=== PATIENT | female | born 1995 | race Caucasian/White ===

== ENCOUNTER 2017-07-28 17:35 | Emergency (ER) | payer OTHER ==
[2017-07-28] MEDS ORDERED: NS 1,000 ML IV ONE (17:47)
[2017-07-28] MEDS ORDERED: LORazepam 2 MG/ML INJ IVP ONE (17:47)
[2017-07-28 17:48] VITALS: RESP 18; TEMP 98.4
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
[2017-07-28 18:25] LABS: PLATELET COUNT 243 10^3/uL (150-400)
[2017-07-28] MEDS ORDERED: lamoTRIgine 100 MG TAB PO ONE (18:58)
[2017-07-28 19:38] VITALS: BP 117/66; PULSE 72; O2SAT 96
== END 2017-07-28 19:40 | disposition home or self-care (01) ==
LOC: EDUNIT#
DX: G40.909 Epilepsy, unspecified, not intractable, without status epilepticus (principal); F17.200 Nicotine dependence, unspecified, uncomplicated
CPT/HCPCS: 96374; J2060